=== PATIENT | female | born 2000 | race African-American/Black ===

== ENCOUNTER 2020-09-05 22:31 | Emergency (ER) | payer SELFPAY ==
[~2020-09-05] VITALS: Ht 154.9 cm; Wt 52.2 kg
[2020-09-05 22:45] VITALS: BP 187/100
--- NOTE | 2020-09-05 22:45 | NUR ---
ED Nurse Note: pt walked into ED from home c/o white vaginal discharge with increased urinary frequency, onset 3 months ago. pt reports having unprotected sex. Pt is AAOx4, breathing even and unlabored. No acute distress noted.
--- NOTE | 2020-09-05 22:49 | NUR ---
ED Nurse Note: urine sent to lab
--- NOTE | 2020-09-05 22:58 | Emergency Room Report ---
History of Present Illness General Chief Complaint: Female Urogenital Problems Source: Patient Present Illness [facility] Disclaimer: Please note that this report is being documented using DRAGON technology. This can lead to erroneous entry secondary to incorrect interpretation by the dictating instrument. HPI: 20-year-old otherwise healthy female with no reported medical history presents for evaluation of vaginal discharge. Symptoms present over 3 months. She reports a thick though sometimes thin white vaginal discharge. Denies bleeding, pelvic discomfort, nausea, vomiting, fever, chills, diarrhea. Reports intermittent dysuria without hematuria. LMP 1 month ago. Reports recent unprotected sexual intercourse. Denies prior history of STI or yeast infections. 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 PMH: Denied PSH: Denied Allergies: Denied Social Hx: Denied Allergies: Coded Allergies: No Known Allergies (Unverified , 09/05/20) COVID-19 Screening Contact w/high risk pt: No Experienced COVID-19 symptoms?: No COVID-19 Testing performed SHORT GOODS DRIER: No Patient History Now: No Nursing Documentation-PMH Past Medical History: No Stated History Review of Systems All Other Systems: negative except mentioned in HPI Physical Exam Vital Signs Date Time Temp Pulse Resp B/P (MAP) Pulse Ox O2 Delivery O2 Flow Rate FiO2 09/05/20 22:35 98.6 87 16 211/120 (150) 99 Room Air General: Awake and alert, no acute distress HEENT: NC/AT. EOMI. Resp: Normal work of breathing Abdomen: Soft, nontender, nondistended, no mass, no rebound, no guarding : Normal-appearing external genitalia. Speculum exam shows thick white vaginal discharge, no lacerations, no bleeding, no masses, no other abnormalit ies. No foreign bodies. No cervical motion tenderness. Skin: Intact. No abrasions, laceration or rash over the exposed skin MSK: Normal tone and bulk. Moving all extremities. No obvious deformity. Neuro: Awake and alert. Mentating appropriately Medical Decision Making Diagnostic Impression: Primary Impression: Vaginitis Additional Impression: Hypertension ER Course 20-year-old female presents for evaluation of 3 months vaginal discharge intermittent dysuria and urinary frequency. Differential includes was not limited to UTI, gonorrhea, chlamydia, syphilis, HIV, yeast infection, BV, trichomonas, PID. She is well-appearing, afebrile, no signs of systemic illness. No clinical evidence of PID. Urinalysis shows 2+ leukocyte esterase, many epithelial cells, 5-10 white cells but no bacteria. Will send for culture. Wet mount shows no yeast, no trichomonas, no clue cells and few WBCs. Presumed STI. Treated with ceftriaxone azithromycin. Referred to women's clinics in the area as well as STD clinic for full panel test including HIV, syphilis, HSV among others. Well-appearing stable for outpatient follow-up. Discussed reasons to return to ED and to have partners checked and treated as well. She understands and agrees with this treatment plan we discharged home. Laboratory Tests Test 09/05/20 22:45 Urine Color Pale yellow Urine Appearance Clear Urine pH 7 (4.5-8.0) Urine Specific Gordon 1.010 (1.005-1.035) Urine Protein 2+ (NEGATIVE) H Urine Glucose (UA) Negative (NEGATIVE) Urine Ketones Negative (NEGATIVE) Urine Blood Negative (NEGATIVE) Urine Nitrite Negative (NEGATIVE) Urine Bilirubin Negative (NEGATIVE) Urine Urobilinogen Normal MG/DL (0.0-1.0) Urine Leukocyte Esterase 2+ (NEGATIVE) H Urine RBC 0-2 /HPF (0 - 2) Urine WBC 5-10 /HPF (0 - 2) H Urine Squamous Epithelial Cells Many /LPF (NONE/OCC) H Urine Bacteria Few /HPF (NONE) Urine HCG, Qualitative Negative (NEGATIVE) Microbiology Date/Time Source Procedure Growth Status 09/05/20 22:56 Vaginal Wet Prep - Final Complete Last Vital Signs Date Time Temp Pulse Resp B/P (MAP) Pulse Ox O2 Delivery O2 Flow Rate FiO2 09/05/20 22:35 98.6 87 16 211/120 (150) 99 Room Air Disposition: HOME, SELF-CARE Condition: Stable Referrals: NON PHYSICIAN (PCP) Momo Olivera MD Sep 05, 2020 22:58
--- NOTE | 2020-09-05 23:02 | NUR ---
ED Nurse Note: EDMD aware BP 187/100
--- NOTE | 2020-09-05 23:03 | NUR ---
ED Nurse Note: Wet mount sample sent to lab
[2020-09-05 23:08] LABS: APPEARANCE,URINE CLEAR; BILIRUBIN, URINE NEGATIVE (NEGATIVE); COLOR,URINE PALE YELLOW; GLUCOSE, URINE (UA) NEGATIVE (NEGATIVE); KETONES,URINE NEGATIVE (NEGATIVE); LEUKOCYTE ESTERASE ,URINE 2+ (NEGATIVE); NITRITE,URINE NEGATIVE (NEGATIVE); PH,URINE 7 (4.5-8.0); PROTEIN,URINE 2+ (NEGATIVE); UROBILINOGEN,URINE NORMAL MG/DL (0.0-1.0)
[2020-09-05] MEDS ORDERED: Lidocaine 1% MPF 10mg/ml 5ml INJ ONE (23:45)
[2020-09-05] MEDS ORDERED: Azithromycin 250mg tab ORAL ONE (23:45)
[2020-09-05 23:51] VITALS: BP 160/98
--- NOTE | 2020-09-05 23:51 | NUR ---
ER DISCHARGE NOTE: Patient is cleared to be discharged per ERMD, pt is aox4, on room air, with stable vital signs. pt was given dc paperwork with instructions to f/u with PMD and [employer], pt was able to verbalize understanding, pt id band removed. pt is able to ambulate with steady gait. pt took all belongings.
== END 2020-09-05 23:51 | disposition home or self-care (01) ==
LOC: EMR 22:48
DX: N76.0 Acute vaginitis (principal); I10 Essential (primary) hypertension
CPT/HCPCS: 81003; 81025; 87086; 87210; 96372; 99283; J0696